=== PATIENT | female | born 1985 | race American Indian/Alaskan Native ===

== ENCOUNTER 2018-01-12 01:53 | Emergency (ER) | payer MEDICAID ==
[2018-01-12] MEDS ORDERED: NACL 0.9% 1000 ML 1,000 ML IV ONE (04:03)
[2018-01-12] MEDS ORDERED: ZOFRAN IV ONE ×3 (04:03→07:18)
[2018-01-12 04:35] LABS: Basophils # (Auto) 0.1 K/mm3 (0.0-0.1); Basophils % (Auto) 0.8 % (0.0-1.8); Eosinophils # (Auto) 0.1 K/mm3 (0.0-0.4); Eosinophils % (Auto) 0.8 % (0.0-4.3); Hematocrit 36.7 % (30.3-42.9); Hemoglobin 12.2 gm/dl (10.1-14.3); Lymphocytes # (Auto) 1.6 K/mm3 (1.2-5.4); Mean Corpuscular HGB Conc 33 % (30-34); Mean Corpuscular Hemoglobin 27 pg (28-32); Mean Corpuscular Volume 82 fl (79-97); Monocytes # (Auto) 0.6 K/mm3 (0.0-0.8); Monocytes % (Auto) 6.1 % (0.0-7.3); Platelet Count 384 K/mm3 (140-440); Red Blood Count 4.49 M/mm3 (3.65-5.03)
[2018-01-12 05:00] LABS: Alanine Aminotransferase 9 units/L (7-56); Albumin 4.7 g/dL (3.9-5); BUN/Creatinine Ratio 12; Blood Urea Nitrogen 6 mg/dL (7-17); Hemolysis Index 17; Lipase 46 units/L (13-60)
--- NOTE | 2018-01-12 06:56 | Emergency Department Report ---
ED Abdominal Pain HPI - General Chief Complaint: Abdominal Pain Stated Complaint: ABD PAIN/DIZZINESS Time Seen by Provider: 01/12/18 06:55 Source: patient Mode of arrival: Ambulatory Limitations: No Limitations - History of Present Illness Initial Comments: 32-year-old female complains of epigastric discomfort for about one weeks duration. She states that her bowel movements have diminished. She has infrequently been vomiting. She denies previous surgery. She has not been seen by a doctor for this problem before. The pain is in the epigastric area and does not radiate. It is described as dull intermittent and sometimes associated with nausea. MD Complaint: abdominal pain -: week(s) Location: epigastric Radiation: none Migration to: no migration Quality: aching Consistency: intermittent Improves With: nothing Worsens With: nothing Associated Symptoms: nausea, vomiting - Related Data Previous Rx's Medication Instructions Recorded Last Taken Type Butalbit/Acetamin/Caff/Codeine 1 cap PO Q6HR PRN #15 cap 06/19/15 Unknown Rx [Fioricet/Codeine [id number]] Butalb/Acetamin/Caff 50-325-40 1 each PO Q4H PRN #20 tablet 09/16/15 Unknown Rx [Fioricet] Ibuprofen [Motrin] 800 mg PO Q8HR PRN #30 tablet 09/16/15 Unknown Rx traMADol [Ultram 50 MG tab] 50 mg PO Q6HR PRN #20 tablet 09/16/15 Unknown Rx Allergies Allergy/AdvReac Type Severity Reaction Status Date / Time No Known Allergies Allergy Unverified 06/19/15 13:23 ED Review of Systems ROS: Stated complaint: ABD PAIN/DIZZINESS Other details as noted in HPI Constitutional: denies: chills, fever Eyes: denies: eye pain, eye discharge, vision change ENT: denies: ear pain, throat pain Respiratory: denies: cough, shortness of breath, wheezing Cardiovascular: denies: chest pain, palpitations Endocrine: no symptoms reported Gastrointestinal: as per HPI, abdominal pain, nausea, vomiting. denies: diarrhea Genitourinary: denies: urgency, dysuria, discharge Musculoskeletal: denies: back pain, joint swelling, arthralgia Skin: denies: rash, lesions Neurological: denies: headache, weakness, paresthesias Psychiatric: denies: anxiety, depression Hematological/Lymphatic: denies: easy bleeding, easy bruising ED Past Medical Hx - Past Medical History Hx Hypertension: Yes (not currently taking bp meds.) - Surgical History Hx Cholecystectomy: Yes Hx Appendectomy: Yes Additional Surgical History: C-sections X 2 - Social History Smoking Status: Current Every Day Smoker Substance Use Type: None - Medications Home Medications: Home Medications Medication Instructions Recorded Confirmed Last Taken Type Butalbit/Acetamin/Caff/Codeine 1 cap PO Q6HR PRN #15 cap 06/19/15 Unknown Rx [Fioricet/Codeine [id number]] Butalb/Acetamin/Caff 50-325-40 1 each PO Q4H PRN #20 tablet 09/16/15 Unknown Rx [Fioricet] Ibuprofen [Motrin] 800 mg PO Q8HR PRN #30 tablet 09/16/15 Unknown Rx traMADol [Ultram 50 MG tab] 50 mg PO Q6HR PRN #20 tablet 09/16/15 Unknown Rx ED Physical Exam - General Limitations: No Limitations General appearance: alert, in no apparent distress - Head Head exam: Present: atraumatic, normocephalic - Eye Eye exam: Present: normal appearance. Absent: scleral icterus - ENT ENT exam: Present: mucous membranes moist - Neck Neck exam: Present: normal inspection. Absent: tenderness, meningismus - Respiratory Respiratory exam: Present: normal lung sounds bilaterally. Absent: respiratory distress - Cardiovascular Cardiovascular Exam: Present: regular rate, normal rhythm. Absent: systolic murmur, diastolic murmur, rubs, gallop - GI/Abdominal GI/Abdominal exam: Present: soft, normal bowel sounds. Absent: distended, tenderness, guarding, rebound, rigid, organomegaly, mass, bruit, pulsatile mass , hernia - Extremities Exam Extremities exam: Present: normal inspection - Back Exam Back exam: Present: normal inspection. Absent: CVA tenderness (R), CVA tenderness (L), muscle spasm, paraspinal tenderness, vertebral tenderness - Neurological Exam Neurological exam: Present: alert, oriented X3, CN II-XII intact. Absent: motor sensory deficit - Psychiatric Psychiatric exam: Present: normal affect, normal mood - Skin Skin exam: Present: warm, dry, intact, normal color. Absent: rash ED Course Vital Signs 01/12/18 01/12/18 01/12/18 03:41 03:59 07:39 Temperature 99.1 F 99.1 F 98.3 F Pulse Rate 85 88 73 Respiratory 14 16 12 Rate Blood Pressure 133/84 133/84 Blood Pressure 120/73 [Right] O2 Sat by Pulse 99 99 100 Oximetry 01/12/18 01/12/18 01/12/18 08:14 09:00 09:30 Temperature Pulse Rate Respiratory 14 Rate Blood Pressure 110/70 114/80 Blood Pressure [Right] O2 Sat by Pulse 100 100 100 Oximetry - Reevaluation(s) Reevaluation #1: The patient's abdominal exam was normal. Her labs are essentially reassuring. Not withstanding this, we proceeded to CT examination which was normal. The patient eloped before we could discuss her findings. 01/12/18 10:38 ED Medical Decision Making - Lab Data Result diagrams: 01/12/18 04:20 01/12/18 04:20 Laboratory Results - last 24 hr 01/12/18 01/12/18 01/12/18 04:20 04:20 04:20 WBC 9.3 RBC 4.49 Hgb 12.2 Hct 36.7 MCV 82 MCH 27 L MCHC 33 RDW 17.0 H Plt Count 384 Lymph % (Auto) 17.0 [place] % (Auto) 6.1 Eos % (Auto) 0.8 Baso % (Auto) 0.8 Lymph # 1.6 [place] # 0.6 Eos # 0.1 Baso # 0.1 Seg Neutrophils % 75.3 H Seg Neutrophils # 7.0 Sodium 139 Potassium 3.7 Chloride 95.1 L Carbon Dioxide 28 Anion Gap 20 BUN 6 L Creatinine 0.5 L Estimated GFR > 60 BUN/Creatinine Ratio 12 Glucose 98 Calcium 10.0 Total Bilirubin 1.00 AST 14 ALT 9 Alkaline Phosphatase 54 Total Protein 7.5 Albumin 4.7 Albumin/Globulin Ratio 1.7 Lipase 46 HCG, Qual Negative - Radiology Data Radiology results: report reviewed Critical care attestation.: If time is entered above; I have spent that time in minutes in the direct care of this critically ill patient, excluding procedure time. ED Disposition Clinical Impression: Abdominal pain Qualifiers: Abdominal location: epigastric Qualified Code(s): R10.13 - Epigastric pain Disposition: ELOPED Is pt being admited?: No Does the pt Need Aspirin: No Condition: Stable Instructions: Abdominal Pain (ED) Referrals: PRIMARY CARE, [Primary Care Provider] - 3-5 Days Time of Disposition: 10:39
[2018-01-12] MEDS ORDERED: MORPHINE IV ONE (07:18)
[2018-01-12] MEDS ORDERED: PEPCID IV ONE (07:18)
[2018-01-12 07:39] LABS: Bacteria,Urine 1+ /HPF (Negative); Bilirubin,Urine NEG (Negative); Blood,Urine NEG (Negative); Color,Urine Yellow (Yellow); Mucus,Urine 2+ /HPF; RBC,Urine < 1.0 /HPF (0.0-6.0); Urobilinogen,Urine < 2.0 mg/dL (<2.0)
--- NOTE | 2018-01-12 08:26 | Cat Scan Report ---
FINAL REPORT EXAM: CT ABDOMEN PELVIS W CON HISTORY: epigastric pain decreased bowel movement TECHNIQUE: CT images are acquired through the Abdomen and Pelvis arterial and delayed phases following intravenous administration of contrast. Transaxial, coronal and sagittal reformations are provided. PRIORS: None FINDINGS: Partially visualized intrathoracic contents are unremarkable. Cholecystectomy. The liver, pancreas, spleen, and adrenal glands are unremarkable. Kidneys show no worrisome lesions, hydronephrosis, or calculi. Incidentally noted duplicated right collecting system. Normal caliber ureters. Urinary bladder is unremarkable. Retroverted uterus. No significant free fluid in the pelvis. Small and large bowel are normal in caliber. No findings of acute appendicitis. No free air, free fluid, or lymphadenopathy identified. Aorta is normal in course and caliber. Superficial soft tissues are unremarkable. No acute or aggressive appearing skeletal findings. IMPRESSION: No acute findings in the abdomen or pelvis.
[2018-01-12 09:10] VITALS: BP 114/80
== END 2018-01-12 10:23 | disposition left against medical advice (07) ==
LOC: ED 01:53
DX: R10.13 Epigastric pain (principal); R11.2 Nausea with vomiting, unspecified; I10 Essential (primary) hypertension; F17.200 Nicotine dependence, unspecified, uncomplicated; Z90.49 Acquired absence of other specified parts of digestive tract; Z79.899 Other long term (current) drug therapy
CPT/HCPCS: 36415; 74177; 80053; 81001; 83690; 84703; 85025; 96374; 96375; 99284; J2270; J2405; J7030; Q9967

== ENCOUNTER 2018-06-07 00:36 | Outpatient (CLI) | payer MEDICAID ==
[2018-06-07 01:19] VITALS: BP 122/73
[2018-06-07] MEDS ORDERED: LACTATED RINGERS 1,000 ML IV ONE (01:26)
[2018-06-07 01:56] LABS: Bacteria,Urine 1+ /HPF (Negative); Bilirubin,Urine NEG (Negative); Blood,Urine MOD (Negative); Color,Urine Straw (Yellow); Protein,Urine <15 mg/dL mg/dL (Negative); Urobilinogen,Urine < 2.0 mg/dL (<2.0)
[2018-06-07 02:02] LABS: Amphetamine Screen,Urine PRESUMPTIVE NEGATIVE; Benzodiazepines Screen,Urine PRESUMPTIVE NEGATIVE; Cocaine Screen,Urine PRESUMPTIVE NEGATIVE; Methadone Screen,Urine PRESUMPTIVE NEGATIVE; Opiate Screen,Urine PRESUMPTIVE NEGATIVE
[2018-06-07 03:08] LABS: Cannabinoid Screen,Urine PRESUMPTIVE POSITIVE
== END 2018-06-07 02:35 | disposition home or self-care (01) ==
LOC: TRG 00:36
PROVIDERS: ATTEND Obstetrics & Gynecology
DX: O46.92 Antepartum hemorrhage, unspecified, second trimester (principal); O13.2 Gestational [pregnancy-induced] hypertension without significant proteinuria, second trimester; Z3A.20 20 weeks gestation of pregnancy; Z87.891 Personal history of nicotine dependence; Z90.49 Acquired absence of other specified parts of digestive tract
CPT/HCPCS: 80307; 81001

== ENCOUNTER 2018-06-23 01:41 | Outpatient (CLI) | payer MEDICAID ==
[2018-06-23] MEDS ORDERED: LACTATED RINGERS 1,000 ML ONE (02:41)
[2018-06-23 02:42] LABS: Amphetamine Screen,Urine PRESUMPTIVE NEGATIVE; Benzodiazepines Screen,Urine PRESUMPTIVE NEGATIVE; Cocaine Screen,Urine PRESUMPTIVE NEGATIVE; Methadone Screen,Urine PRESUMPTIVE NEGATIVE; Opiate Screen,Urine PRESUMPTIVE NEGATIVE
[2018-06-23 02:45] LABS: Bilirubin,Urine NEG (Negative); Blood,Urine NEG (Negative); Color,Urine Straw (Yellow); Protein,Urine <15 mg/dL mg/dL (Negative); Urobilinogen,Urine < 2.0 mg/dL (<2.0)
[2018-06-23 02:55] LABS: Cannabinoid Screen,Urine PRESUMPTIVE POSITIVE
[2018-06-23] MEDS ORDERED: LACTATED RINGERS 1,000 ML IV SCH (03:00)
[2018-06-23 15:02] VITALS: BP 117/72
== END 2018-06-23 03:40 | disposition home or self-care (01) ==
LOC: TRG 01:41 → LD 01:43 → TRG 03:40
PROVIDERS: ATTEND Obstetrics & Gynecology
DX: O47.02 False labor before 37 completed weeks of gestation, second trimester (principal); O10.012 Pre-existing essential hypertension complicating pregnancy, second trimester; Z3A.23 23 weeks gestation of pregnancy; Z87.891 Personal history of nicotine dependence; Z90.49 Acquired absence of other specified parts of digestive tract
CPT/HCPCS: 59025; 80307; 81001; J7120

== ENCOUNTER 2018-07-19 19:42 | Outpatient (CLI) | payer MEDICAID ==
[2018-07-19 20:09] VITALS: BP 135/85
[2018-07-19 21:11] LABS: Basophils % (Auto) 0.2 % (0.0-1.8); Eosinophils # (Auto) 0.1 K/mm3 (0.0-0.4); Eosinophils % (Auto) 0.7 % (0.0-4.3); Hematocrit 29.6 % (30.3-42.9); Lymphocytes # (Auto) 1.9 K/mm3 (1.2-5.4); Lymphocytes % (Auto) 13.9 % (13.4-35.0); Mean Corpuscular HGB Conc 34 % (30-34); Mean Corpuscular Hemoglobin 28 pg (28-32); Mean Corpuscular Volume 84 fl (79-97); Monocytes # (Auto) 0.4 K/mm3 (0.0-0.8); Monocytes % (Auto) 3.2 % (0.0-7.3); Platelet Count 266 K/mm3 (140-440); Red Blood Count 3.51 M/mm3 (3.65-5.03); Red Cell Distribution Width 15.3 % (13.2-15.2)
[2018-07-19 21:28] LABS: INR 0.85 (0.87-1.13)
[2018-07-19 21:52] LABS: Bilirubin,Urine NEG (Negative); Blood,Urine NEG (Negative); Color,Urine Yellow (Yellow); Mucus,Urine FEW /HPF; Protein,Urine <15 mg/dL mg/dL (Negative); Urobilinogen,Urine < 2.0 mg/dL (<2.0)
--- NOTE | 2018-07-19 22:42 | Ultrasound Report ---
PROCEDURE: US OB LIMITED TECHNIQUE: Real-time limited sonographic examination was performed for evaluation of the placenta fo r each fetus with image documentation (1 or more fetuses). HISTORY: Abdominal pain r/o abruption pain COMPARISONS: None . FINDINGS: Evaluation of the placenta reveals the placenta along the posterior aspect of the uterus. T here is no evidence of abruption or previa. There is a single fetus in vertex presentation. hea rt rate 1 25 bpm. No other measurements are obtained. IMPRESSION: Normal posterior placenta is identified. No evidence of abruption. This document is electronically signed by Kayla Luna DO., July 19 2018 10:40:06 PM ET
== END 2018-07-19 23:00 | disposition home or self-care (01) ==
LOC: TRG 19:42
PROVIDERS: ATTEND Obstetrics & Gynecology
DX: O47.02 False labor before 37 completed weeks of gestation, second trimester (principal); Z3A.26 26 weeks gestation of pregnancy
CPT/HCPCS: 36415; 59025; 76815; 81001; 85025; 85379; 85610; 85730